=== PATIENT | male | born 1980 | race Asian ===

== ENCOUNTER 2016-04-04 12:58 | Emergency (ER) | payer MEDICAID ==
[2016-04-04] MEDS ORDERED: SODIUM CHLORIDE 0.9% 1,000 ML IV ONE (13:19)
[2016-04-04] MEDS ORDERED: PROCHLORPERAZINE 10 MG/2 ML VIAL IVP STA (13:20)
[2016-04-04] MEDS ORDERED: diphenhydrAMINE INJ 50 MG/ML VIAL ONE (13:31)
[2016-04-04] MEDS ORDERED: PROCHLORPERAZINE 10 MG/2 ML VIAL ONE (13:31)
[2016-04-04] MEDS ORDERED: diphenhydrAMINE INJ 50 MG/ML VIAL IVP SCH (14:00)
[2016-04-04] MEDS ORDERED: diphenhydrAMINE INJ 50 MG/ML VIAL IVP ONE (14:00)
== END 2016-04-04 15:12 | disposition home or self-care (01) ==
DX: R51 Headache (principal); Z87.898 Personal history of other specified conditions; J45.909 Unspecified asthma, uncomplicated

== ENCOUNTER 2016-07-03 07:15 | Emergency (ER) | payer MEDICAID ==
[2016-07-03] MEDS ORDERED: LIDOCAINE 1%-EPI 1:100000 20 ML MDV ONE (07:47)
[2016-07-03] MEDS ORDERED: LIDOCAINE 1%-EPI 1:100000 20 ML MDV SUBQ STA (08:04)
== END 2016-07-03 08:41 | disposition home or self-care (01) ==
DX: S80.12XA Contusion of left lower leg, initial encounter (principal); X58.XXXA Exposure to other specified factors, initial encounter; J45.909 Unspecified asthma, uncomplicated

== ENCOUNTER 2016-07-10 16:37 | Emergency (ER) | payer MEDICAID | END 2016-07-10 18:11 | disposition home or self-care (01) | DX: S81.812A Laceration without foreign body, left lower leg, initial encounter (principal); L08.9 Local infection of the skin and subcutaneous tissue, unspecified; Z98.890 Other specified postprocedural states; R03.0 Elevated blood-pressure reading, without diagnosis of hypertension; J45.909 Unspecified asthma, uncomplicated; Z86.19 Personal history of other infectious and parasitic diseases ==

== ENCOUNTER 2017-08-18 17:12 | Outpatient (CLI) | payer MEDICAID | END 2017-08-18 17:13 | disposition critical access hospital (66) | LOC: EMS 17:12 | PROVIDERS: ATTEND Surgery | DX: R40.1 Stupor (principal) | CPT/HCPCS: A0425; A0427 ==

== ENCOUNTER 2017-08-18 17:27 | Emergency (ER) | payer MEDICAID ==
--- NOTE | 2017-08-18 17:53 | ED Physician Documentation ---
PD HPI ALTERED MENTAL STATUS - Stated complaint Stated Complaint: SI - Chief complaint Chief Complaint: MHE - History obtained from History obtained from: EMS, Police - History of Present Illness Timing - onset: Today Timing - details: Abrupt onset (The patient had Facebook that he was feeling depressed and may want to cough. His friends notified the police who tried to find him. Apparently they chased him through the [place] and streets. They lost track of him for a bit and then found him down on the ground near his house unresponsive. There are no obvious track morales for IV sites. He had 2 Tylenol tablets in his pocket. There were no pill bottles noted. He did not have any apparent injury. He was brought by EMS to the ER. He was given Narcan and IV fluids en route without any change in his mentation. Blood sugar was checked and was adequate. He did appear to have adequate respirations and good vitals. He arrives in the ER with vitals within normal range and oximetry at 100% on room air. CO2 monitoring was started and this was adequate as well. He is responsive to painful stimuli with withdrawing only. He does have a gag reflex. ) Quality / character: Unresponsive Associated symptoms: No: Fever Contributing factors: Other (unknown cause for the unresponsiveness) Basline status: Alert and oriented X 3, Ambulatory Treatment CARDIOVASCULAR RN: Accucheck, Narcan, Airway management Similar symptoms before: Has not had sx before Review of Systems Unable to obtain: Unresponsive PD PAST MEDICAL HISTORY - Past Medical History Respiratory: Asthma Psych: Depression - Past Surgical History Past Surgical History: Yes General: Other - Present Medications Home Medications: Ambulatory Orders Medication Instructions Recorded Confirmed Cephalexin [Keflex] 500 mg PO QID #40 capsule 07/10/16 - Allergies Allergies/Adverse Reactions: Allergies Allergy/AdvReac Type Severity Reaction Status Date / Time No Known Drug Allergies Allergy Verified 07/10/16 16:53 - Living Situation Living Situation: reports: Unknown Living Arrangement: reports: Unknown - Social History Does the pt smoke?: No Smoking Status: Never smoker Does the pt drink ETOH?: Yes Does the pt have substance abuse?: No - Family History Family history: reports: Unknown - Immunizations Immunizations are current?: Yes - POLST Patient has POLST: No PD ED PE NORMAL - Vitals Vital signs reviewed: Yes - General General: Well developed/nourished, Other (unresponsive to verbal; withdraws to painful. Minimal response to mora catheter placement. ) - HEENT HEENT: Atraumatic, Pharynx benign - Neck Neck: Supple, no meningeal sign, No adenopathy - Cardiac Cardiac: RRR, No murmur - Respiratory Respiratory: Clear bilaterally - Abdomen Abdomen: Normal bowel sounds, Non distended, No organomegaly - Male Male : Deferred - Rectal Rectal: Deferred - Derm Derm: Normal color, Warm and dry - Extremities Extremities: No deformity, No edema - Neuro Neuro: No: Alert and oriented X 3 Eye Opening: None Motor: Withdraws to Pain Verbal: None GCS Score: 6 Results - Vitals Vitals: Vital Signs - 24 hr 08/18/17 08/18/17 08/18/17 17:30 17:45 18:00 Temperature 36.2 C L Heart Rate 97 92 97 Respiratory 18 14 12 Rate Blood Pressure 135/87 H 140/89 H 130/84 H O2 Saturation 100 100 100 08/18/17 08/18/17 08/18/17 18:30 18:55 19:25 Temperature Heart Rate 92 92 Respiratory 14 15 Rate Blood Pressure 108/77 O2 Saturation 100 100 08/18/17 08/18/17 08/18/17 19:45 20:05 20:30 Temperature 36.1 C L Heart Rate 89 87 82 Respiratory 15 14 11 L Rate Blood Pressure 106/71 104/72 108/75 O2 Saturation 100 99 100 08/18/17 21:46 Temperature Heart Rate 83 Respiratory 12 Rate Blood Pressure 106/70 O2 Saturation 99 Oxygen O2 Source Room air Oxygen Flow Rate 2 - EKG (time done) 18:13 Rate: Rate (enter#) (91) Rhythm: NSR [place]: Normal Intervals: Normal [place] QRS: Normal Ischemia: Normal ST segments, ST elevation c/w repol. No: ST elevation c/w ischemia, ST depression - Labs Labs: Laboratory Tests 08/18/17 08/18/17 08/18/17 17:56 18:35 18:35 WBC 6.5 RBC 4.69 L Hgb 14.4 Hct 42.9 MCV 91.5 MCH 30.8 MCHC 33.6 RDW 13.5 Plt Count 196 MPV 8.9 Neut # 4.2 Lymph # 1.2 L Dale # 0.9 Eos # 0.1 Baso # 0.1 Absolute Nucleated RBC 0.00 Nucleated RBC % 0.0 Sodium 137 Potassium 3.9 Chloride 105 Carbon Dioxide 25 Anion Gap 7.0 BUN 20 Creatinine 0.8 Estimated GFR (MDRD) 109 Glucose 90 Lactic Acid Calcium 8.7 Total Bilirubin 2.0 H AST 26 ALT 24 Alkaline Phosphatase 47 Total Protein 7.0 Albumin 4.0 Globulin 3.0 Albumin/Globulin Ratio 1.3 Lipase 15 L Urine Color YELLOW Urine Clarity CLEAR Urine pH 6.0 Ur Specific Howard 1.020 Urine Protein NEGATIVE Urine Glucose (UA) NEGATIVE Urine Ketones 15 H Urine Occult Blood NEGATIVE Urine Nitrite NEGATIVE Urine Bilirubin NEGATIVE Urine Urobilinogen 0.2 (NORMAL) Ur Leukocyte Esterase NEGATIVE Ur Microscopic Review NOT INDICATED Urine Culture Comments NOT INDICATED Salicylates < 6.0 Urine Opiates Screen NEGATIVE Ur Oxycodone Screen NEGATIVE Urine Methadone Screen NEGATIVE Ur Propoxyphene Screen NEGATIVE Acetaminophen < 10 L Ur Barbiturates Screen NEGATIVE Ur Tricyclics Screen POSITIVE H Ur Phencyclidine Scrn NEGATIVE Ur Amphetamine Screen POSITIVE H U Methamphetamines Scrn NEGATIVE U Benzodiazepines Scrn NEGATIVE Urine Cocaine Screen NEGATIVE U Cannabinoids Screen NEGATIVE Ethyl Alcohol < 5.0 08/18/17 18:35 WBC RBC Hgb Hct MCV MCH MCHC RDW Plt Count MPV Neut # Lymph # Dale # Eos # Baso # Absolute Nucleated RBC Nucleated RBC % Sodium Potassium Chloride Carbon Dioxide Anion Gap BUN Creatinine Estimated GFR (MDRD) Glucose Lactic Acid 0.9 Calcium Total Bilirubin AST ALT Alkaline Phosphatase Total Protein Albumin Globulin Albumin/Globulin Ratio Lipase Urine Color Urine Clarity Urine pH Ur Specific Howard Urine Protein Urine Glucose (UA) Urine Ketones Urine Occult Blood Urine Nitrite Urine Bilirubin Urine Urobilinogen Ur Leukocyte Esterase Ur Microscopic Review Urine Culture Comments Salicylates Urine Opiates Screen Ur Oxycodone Screen Urine Methadone Screen Ur Propoxyphene Screen Acetaminophen Ur Barbiturates Screen Ur Tricyclics Screen Ur Phencyclidine Scrn Ur Amphetamine Screen U Methamphetamines Scrn U Benzodiazepines Scrn Urine Cocaine Screen U Cannabinoids Screen Ethyl Alcohol - Rads (name of study) chest Radiology: Prelim report reviewed, EMP read contemporaneously (no acute process) head CT Radiology: Prelim report reviewed (no acute process. ) PD MEDICAL DECISION MAKING - ED course Complexity details: reviewed results, re-evaluated patient (still minimally responsive to painful stimuli but with adequate gag reflex and ventilation by COs monitoring and sats. ), considered differential, d/w patient, d/w warehouse consultant (Dr. Jain, hospitalist, who said patient is not appropriate for hospitalization as presumedly just needs time to wake up. He has negative EtOH and labs. Not clear if overdose or toxidrome. He is not tachycardic, so not apparent TCA overdose. Certainly can be some drug not on UTox. No obvious traumatic cause but was found down, so consider concussive too. Labs okay without obvious metabolic cause. Will give IV fluids, check FSBS periodically and wait indefinite time for him to awaken enough for psych eval. ) ED course: about 22:20, the patient awoke and was very agitated and mumbling, not really able to follow commands. Not combative per se, but just incoherent and anxious. This phase could take awhile and so will medicate him for comfort and to help relax. Ex- is here and reports he has had depression and suicidal ideation in the past. History of meth and drug use. She has not seen him agitated like this before and no schizoaffective presentations in the past. So presume this is some med/drug effect, presume ingestion. Departure - Departure Clinical Impression: Suicidal ideation Altered mental status Qualifiers: Altered mental status type: coma Coma depth: unspecified coma depth Qualified Code(s): R40.20 - Unspecified coma Condition: Stable Record reviewed to determine appropriate education?: Yes
[2017-08-18] MEDS ORDERED: SODIUM CHLORIDE 0.9% 1,000 ML IV ONE (18:02)
[2017-08-18 18:11] LABS: MUDS CUTOFF CONCENTRATIONS CUTOFF CONC BELOW:
[2017-08-18 18:16] LABS: BILIRUBIN,URINE NEGATIVE (NEGATIVE); GLUCOSE, URINE (UA) NEGATIVE (NEGATIVE); KETONES,URINE (UA) 15 mg/dL (NEGATIVE); LEUKOCYTE ESTERASE, URINE NEGATIVE (NEGATIVE); NITRITE,URINE NEGATIVE (NEGATIVE); OCCULT BLOOD,URINE NEGATIVE (NEGATIVE); PROTEIN,URINE NEGATIVE (NEGATIVE); UROBILINOGEN,URINE 0.2 (NORMAL) E.U./dL (NORMAL)
[2017-08-18 18:20] LABS: CLARITY,URINE CLEAR (CLEAR)
[2017-08-18 18:31] LABS: AMPHETAMINE SCREEN,URINE POSITIVE (NEGATIVE); BENZODIAZEPINES SCREEN, URINE NEGATIVE (NEGATIVE); COCAINE SCREEN URINE NEGATIVE (NEGATIVE); METHADONE SCREEN, URINE NEGATIVE (NEGATIVE); METHAMPHETAMINES SCREEN, URINE NEGATIVE (NEGATIVE); OPIATE SCREEN, URINE NEGATIVE (NEGATIVE); OXYCODONE SCREEN, URINE NEGATIVE (NEGATIVE); PROPOXYPHENE SCREEN, URINE NEGATIVE (NEGATIVE); TRICYCLIC ANTIDEPRESSANT,URINE POSITIVE (NEGATIVE)
[2017-08-18 18:38] LABS: BASOPHILS # (AUTO) 0.1 10^3/uL (0.0-0.1); BASOPHILS % (AUTO) 0.9 %; EOSINOPHILS # (AUTO) 0.1 10^3/uL (0.0-0.7); HGB - HEMOGLOBIN 14.4 g/dL (14.0-18.0); LYMPHOCYTES # (AUTO) 1.2 10^3/uL (1.5-3.5); LYMPHOCYTES % (AUTO) 18.4 %; MEAN CORPUSCULAR HEMOGLOBIN 30.8 pg (27.0-31.0); MEAN CORPUSCULAR HGB CONC 33.6 g/dL (32.0-36.0); MEAN CORPUSCULAR VOLUME 91.5 fL (80.0-94.0); MEAN PLATELET VOLUME 8.9 fL (7.4-11.4); MONOCYTES # (AUTO) 0.9 10^3/uL (0.0-1.0); MONOCYTES % (AUTO) 13.2 %; NEUTROPHILS # (AUTO) 4.2 10^3/uL (1.5-6.6); NEUTROPHILS % (AUTO) 65.5 %; PLT - PLATELET COUNT 196 10^3/uL (130-450); RED BLOOD COUNT 4.69 10^6/uL (4.70-6.10); RED CELL DISTRIBUTION WIDTH 13.5 % (12.0-15.0); WHITE BLOOD COUNT 6.5 x10^3/uL (4.8-10.8)
[2017-08-18] MEDS ORDERED: SODIUM BICARBONATE 100 MEQ in SODIUM CHLORIDE 0.9% 1,000 ML IV ONE (18:58)
--- NOTE | 2017-08-18 18:59 | XRAY Preliminary Report ---
Exam: XR CHEST 1 VIEW X-RAY IMPRESSION: Mildly low lung volumes with findings suggestive of mild volume overload, though infectio us/inflammatory pneumonitis could appear similarly. [facility] SITE ID: [id number]
[2017-08-18 19:01] LABS: ALBUMIN/GLOBULIN RATIO 1.3 (1.0-2.2); ALKALINE PHOSPHATASE 47 IU/L (42-121); ALT ALANINE AMINOTRANSFERASE 24 IU/L (10-60); AST ASPARTATE AMINOTRANSFERASE 26 IU/L (10-42); BUN - BLOOD UREA NITROGEN 20 mg/dL (6-20); CALCIUM 8.7 mg/dL (8.5-10.3); CARBON DIOXIDE - CO2 25 mmol/L (21-32); CHLORIDE 105 mmol/L (101-111); CREATININE 0.8 mg/dL (0.6-1.2); GFR - MDRD 109 (>89); GLUCOSE 90 mg/dL (70-100); LIPASE 15 U/L (22-51); SALICYLATE < 6.0 mg/dL; SODIUM 137 mmol/L (135-145)
[2017-08-18 19:03] LABS: ACETAMINOPHEN < 10 ug/mL (10-30)
--- NOTE | 2017-08-18 19:09 | XRAY Report ---
EXAM: CHEST RADIOGRAPHY EXAM DATE: 08/18/2017 06:24 PM. CLINICAL HISTORY: Unresponsive. COMPARISON: Chest radiograph 08/27/2015. CT of the abdomen and pelvis 07/11/2008. TECHNIQUE: 1 view. FINDINGS: Lungs/Pleura: There is mild diffuse interstitial prominence with borderline low lung volumes. There i s mild peribronchial cuffing. No focal consolidation. No significant pleural effusion. No pneumothora x. Mediastinum: Within exam limitations, the cardiomediastinal contour is unremarkable. Other: None. IMPRESSION: Mildly low lung volumes with findings suggestive of mild volume overload, though infectio us/inflammatory pneumonitis could appear similarly. [facility] Referring Provider Line: [phone] SITE ID: [id number]
--- NOTE | 2017-08-18 19:34 | CT Report ---
EXAM: CT HEAD EXAM DATE: 08/18/2017 06:51 PM. CLINICAL HISTORY: Unresponsive, unknown cause. COMPARISON: None. TECHNIQUE: Multiaxial CT images were obtained from the foramen magnum to the vertex. Reformats: Coron al. IV contrast: None. In accordance with CT protocol optimization, one or more of the following dose reduction techniques w ere utilized for this exam: automated exposure control, adjustment of mA and/or KV based on patient s ize, or use of iterative reconstructive technique. FINDINGS: Parenchyma: No intracranial hemorrhage. No evidence of mass, midline shift or CT findings of acute te rritorial infarction. De Leon-white differentiation is distinct. Extraaxial Spaces: No subdural or epidural collections identified. Ventricles: No hydrocephalus Sinuses: Each orbits and mastoid air cells demonstrate no significant abnormality. Mucosal thickening in the bilateral maxillary sinuses. Bones: No evidence of acute fracture or calvarial defect. Other: None. IMPRESSION: No acute intracranial abnormalities. [facility] Referring Provider Line: [phone] SITE ID: [id number]
--- NOTE | 2017-08-18 19:34 | CT Preliminary Report ---
Exam: CT HEAD W/O IMPRESSION: No acute intracranial abnormalities. [facility] SITE ID: [id number]
[2017-08-18] MEDS ORDERED: SODIUM BICARBONATE 8.4% 50 MEQ/50 ML VIAL ONE (19:40)
[2017-08-18] MEDS ORDERED: diphenhydrAMINE INJ 50 MG/ML VIAL IVP STA (22:30)
[2017-08-18] MEDS ORDERED: HALOPERIDOL 5 MG/ML VIAL IVP ONE (22:30)
[2017-08-19] MEDS ORDERED: NICOTINE 21 MG PATCH TOP STA (11:36)
--- NOTE | 2017-08-19 12:38 | ED Physician Documentation ---
ED Addendum - Addendum Addendum: Reported to me oncoming to my shift is that patient slept the night without problems and was somewhat rousable this morning and now more alert and conversant. [facility] will be called. 08/19/17 12:36
[2017-08-19 19:52] VITALS: BP 119/70
== END 2017-08-19 20:01 ==
LOC: EDUNIT# → ED 17:27
DX: R45.851 Suicidal ideations (principal); R40.20 Unspecified coma; R94.31 Abnormal electrocardiogram [ECG] [EKG]
CPT/HCPCS: 36415; 51702; 70450; 71045; 80053; 80306; 80307; 80320; 80329; 81003; 83605; 83690; 85025; 93005; 96361; 96365; 96366; 96375; 99285; A9270; J1200; 81001; 87086